=== PATIENT | male | born 1945 | race Caucasian/White ===

== ENCOUNTER 2019-03-31 15:01 | Emergency (ER) | payer MEDICARE, OTHER, SELFPAY ==
[2019-03-31 15:05] VITALS: BP 134/77; PULSE 70; RESP 18; TEMP 36.9; O2SAT 96
--- NOTE | 2019-03-31 15:10 | DI.RAD.S_ITS ---
PROCEDURE: XR CHEST 1V INDICATIONS: chest pain TECHNIQUE: One view of the chest was acquired. COMPARISON: [facility], , CHEST 1 VIEW, 11/12/2009, 13:43. FINDINGS: Surgical changes and devices: Median sternotomy wires are seen. Lungs and pleura: Increase bronchovasc the markings in bilateral hilar region are noted. Prominence and right hilar region is seen concerning for right perihilar infiltrate. No pleural effusions or pneumothorax. Mediastinum: Mediastinal contours appear normal. Heart size is enlarged. Bones and chest wall: No suspicious bony lesions. Overlying soft tissues appear unremarkable. IMPRESSION: Findings concerning for right perihilar infiltrate. Dictated by: Polo Pinto M.D. on 03/31/2019 at 15:45 Approved by: Polo Pinto M.D. on 03/31/2019 at 15:46
--- NOTE | 2019-03-31 15:10 | DI.CT.S_ITS ---
PROCEDURE: CT HEAD/BRAIN WO CON INDICATIONS: syncope yesterday w/ head injury: no memory of incident TECHNIQUE: Noncontrast 4.5 mm thick angled axial sections acquired from the foramen magnum to the vertex, with coronal and sagittal reformats. For radiation dose reduction, the following was used: automated exposure control, adjustment of mA and/or kV according to patient size. COMPARISON: None. FINDINGS: Image quality: Excellent. CSF spaces: Basal cisterns are patent. No extra-axial fluid collections. Ventricles are normal in size and shape. Brain: No midline shift. No intracranial masses or hemorrhage. Urias-white matter interface is normal. Skull and face: Calvarium and visualized facial bones are intact, without suspicious lesions. Sinuses: Visualized sinuses and mastoids are clear. IMPRESSION: Unremarkable head CT. No acute intracranial hemorrhage. Dictated by: Khris Molina M.D. on 03/31/2019 at 15:37 Approved by: Khris Molina M.D. on 03/31/2019 at 15:38
[2019-03-31 15:37] LABS: Add Manual Diff / Slide Review NO; Basophils Absolute Auto 0 /uL (0-100); Basophils Percent Auto 0.3 % (0-2); Eosinophils Absolute Auto 100 /uL (0-450); Eosinophils Percent Auto 1.9 % (2-4); Hemoglobin 11.2 g/dL (13.5-17.5); Lymphocytes Absolute Auto 1900 /uL (1100-4500); Lymphocytes Percent Auto 23.9 % (25-40); Mean Corpuscular HGB Conc 32.9 % (30-36); Mean Corpuscular Hemoglobin 30.7 PG (26-34); Mean Corpuscular Volume 93.1 fL (80-100); Monocytes Absolute Auto 800 /uL (0-900); Monocytes Percent Auto 10.1 % (3-14); Neutrophils Absolute Auto 5000 /uL (1500-7000); Neutrophils Percent Auto 63.8 % (50-75); Platelet Count 232 X10^3/uL (150-400); Red Blood Cell Count 3.65 X10^6/uL (4.5-5.9); White Blood Cell Count 7.8 X10^3/uL (4.5-11.0)
[2019-03-31 15:39] LABS: Prothrombin Time 11.6 SECONDS (10.1-12.7)
[2019-03-31 15:41] LABS: PTT Partial Thromboplastin Tim 36 SECONDS (26.4-36.2)
[2019-03-31 15:49] LABS: Alanine Aminotransferase 19 IU/L (21-72); Albumin 3.9 g/dL (3.5-5.0); Albumin Globulin Ratio 1.6 (1.0-2.8); Alkaline Phosphatase 74 U/L (38-126); Aspartate Aminotransferase 20 IU/L (17-59); BUN Creatinine Ratio 27.9 (6-22); Bilirubin Total 0.2 mg/dL (0.2-1.3); Blood Urea Nitrogen 39 mg/dL (9-20); Calcium 9.3 mg/dL (8.4-10.2); Carbon Dioxide 28 mmol/L (22-32); Chloride 106 mmol/L (98-107); Creatine Kinase 29 U/L (55-170); Estimated Glomerular Filt Rate 49.4 mL/min (>60); Globulin 2.4 g/dL (1.7-4.1); Glucose 92 mg/dL (80-110); HEMOLYSIS < 15 (0-50); Lipase 49 U/L (23-300); Potassium 4.4 mmol/L (3.4-5.1); Sodium 141 mmol/L (137-145); Total Protein 6.3 g/dL (6.3-8.2)
[2019-03-31 16:00] LABS: Troponin I < 0.012 ng/mL (0.01-0.034)
--- NOTE | 2019-03-31 16:50 | ED.HEATRA ---
HPI - Head Injury General Chief complaint: Head Injury Stated complaint: fall last night w/ altered mental status Time Seen by Provider: 03/31/19 16:35 Source: patient Mode of arrival: ambulatory Limitations: no limitations History of Present Illness HPI Narrative: The patient is 73-year-old male who presents after syncopal episode. He states that he does of vapor THC on a regular basis however last night he had a different stranded was also combined with 2 alcoholic drinks and he takes narcotic medications on a regular basis. He said he does both stood up to look at the [place] yesterday all of a sudden he fell backwards hitting his head. states he was out anywhere from 15-30 seconds. However following that for 60-90 minutes he was confused and could not remember anything she had repetitive conversations with him. He denies any of slurring of speech focal deficits. He was encouraged by friends and his primary care provider in [place] to come to the ER for evaluation. Related Data Home Medications Medication Instructions Recorded Confirmed aspirin 81 mg PO DAILY #0 07/09/11 03/31/19 Glucose: Test Strips 1 str QDAY 03/31/19 03/31/19 atorvastatin 20 mg PO DAILY 03/31/19 03/31/19 calcium citrate-vitamin D3 1 tab PO QNOON 03/31/19 03/31/19 diclofenac sodium 75 mg PO BID 03/31/19 03/31/19 docusate sodium 100 mg PO PRN PRN 03/31/19 03/31/19 duloxetine 60 mg PO DAILY 03/31/19 03/31/19 escitalopram oxalate 10 mg PO DAILY 03/31/19 03/31/19 hydrocodone-acetaminophen [[place]] 1 tab PO TID 03/31/19 03/31/19 lisinopril 2.5 mg PO DAILY 03/31/19 03/31/19 magnesium oxide 400 mg PO BID 03/31/19 03/31/19 metoprolol succinate 25 mg PO DAILY 03/31/19 03/31/19 modafinil 200 mg PO DAILY 03/31/19 03/31/19 multivitamin 1 tab PO QNOON 03/31/19 03/31/19 omeprazole 20 mg PO DAILY 03/31/19 03/31/19 oxycodone [OxyContin] 20 mg PO TID 03/31/19 03/31/19 tamsulosin 0.4 mg PO QNOON 03/31/19 03/31/19 Previous Rx's Medication Instructions Recorded Glucose: Home Monitor 0 dev QDAY #1 07/28/17 Allergies Allergy/AdvReac Type Severity Reaction Status Date / Time diazepam [DIAZEPAM] Allergy Severe PARANOID Unverified 01/19/18 12:02 AND SUICIDAL phenobarbital [PHENOBARBITAL] Allergy Mild DIFFICULT Unverified 01/19/18 12:02 WAKING UP + Pain Agree AdvReac Unknown Uncoded 01/19/18 12:02 Review of Systems Review of Systems ROS Unobtainable: All systems reviewed & are unremarkable except as noted in HPI and below Constitutional Denies chills, Denies fever(s), Denies headache(s), Denies lethargy and Denies weakness Eyes Denies change in vision, Denies eye discharge, Denies irritation and Denies loss of vision ENT Ears, Nose, Mouth, and Throat: Denies headache(s) Cardiovascular Denies chest pain, Reports syncope, Denies rapid heart rate, Denies irregular heart rhythm, Denies radiating jaw, neck or arm pain, Denies dyspnea and Denies dyspnea on exertion Respiratory Denies cough, Denies dyspnea, Denies dyspnea on exertion and Denies wheezing Gastrointestinal Gastrointestinal: Denies abdominal pain, Denies change in bowel habits, Denies diarrhea, Denies nausea and Denies vomiting Genitourinary Denies hematuria, Denies flank pain, Denies urinary incontinence and Denies urinary urgency Musculoskeletal Denies back pain, Denies muscle weakness, Denies numbness and Denies tingling Integumentary/Breasts Denies pruritus, Denies erythema, Denies rash and Denies wounds Neurologic Denies confusion, Reports syncope, Denies headache(s), Denies loss of vision, Denies numbness, Denies tingling and Denies weakness Psychiatric Denies anxiety, Denies confusion, Denies depression, Denies homicidal ideation and Denies suicidal ideation Allergic/Immunologic Denies wheezing [facility] Medical History Coronary artery disease (Acute) Surgical History Status post colectomy 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 HEENT: Head atraumatic,EOMI, pupils reactive, face symmetric, moist mucous membranes CARDIOVASCULAR: Regular rate and rhythm without murmurs, rubs or gallops. RESPIRATORY: Breath sounds equal bilaterally, no wheezes rales or rhonchi. ABDOMEN: Soft, nontender. Normoactive bowel sounds all 4 quadrants. No guarding or rebound. EXTREMITIES: Normal range of motion, no clubbing or edema. Neurovascularly intact NEUROLOGICAL: Alert and oriented x4.Normal gait and speech. Cranial nerves II through XII grossly intact. Good [id number], good [id number], strength equal bilaterally, no dysarthria or aphasia, sensation in tact to soft touch bilaterally, no visual changes, no facial droop SKIN: Warm, dry, no laceration, no petechiae, no rashes or lesions. Scores NIH Stroke Scale Level of Conciousness: Alert, keenly responsive Ask month/age: Answers both questions correctly. Open/close eyes, close hand: Performs both tasks correctly Best gaze horizontal: Normal Visual dudley: No visual loss Facial palsy: Normal symetrical movement Left arm drift: No drift for full 10 sec Right arm drift: No drift for full 10 sec Left leg drift: No drift for full 10 sec Right leg drift: No drift for full 10 sec Limb ataxia: Absent Sensory on face/arms/legs: Normal, no sensory loss Best language: No aphasia, normal Dysarthria: Normal Extinction or inattention: No abnormality Total NIH Stroke scale score: 0 Course Orders Ordered: ED Orders 03/31/19 15:10 CT head/brain wo con Stat XR chest 1V Stat EKG-12 Lead Stat 03/31/19 15:22 Complete Blood Count AUTO DIFF Stat Comprehensive Metabolic Panel Stat Lipase Stat Partial Thromboplastin Time Stat Prothrombin Time INR Stat Troponin & CK Cardiac Panel Stat Vital Signs - 8 hr 03/31/19 15:05 Temperature 98.4 F Pulse Rate 70 Respiratory Rate 18 Blood Pressure 134/77 Pulse Oximetry 96 MDM - Head Injury Lab Data Attestation: I reviewed the patient's lab results. Result diagrams: 03/31/19 15:22 03/31/19 15:22 Lab Results 03/31/19 03/31/19 03/31/19 Range/Units 15:22 15:22 15:22 WBC 7.8 (4.5-11.0) X10^3/uL RBC 3.65 L (4.5-5.9) X10^6/uL Hgb 11.2 L (13.5-17.5) g/dL Hct 34.0 L (41-53) % MCV 93.1 (80-100) fL MCH 30.7 (26-34) PG MCHC 32.9 (30-36) % RDW 13.0 (11.6-14.8) % Plt Count 232 (150-400) X10^3/uL Neut % (Auto) 63.8 (50-75) % Lymph % (Auto) 23.9 L (25-40) % [place] % (Auto) 10.1 (3-14) % Eos % (Auto) 1.9 L (2-4) % Baso % (Auto) 0.3 (0-2) % Neut # (Auto) 5000 (4425-9424) /uL Lymph # (Auto) 1900 (0973-5542) /uL [place] # (Auto) 800 (0-900) /uL Eos # (Auto) 100 (0-450) /uL Baso # (Auto) 0 (0-100) /uL PT 11.6 (10.1-12.7) SECONDS INR 1.0 (0.9-1.3) APTT 36 (26.4-36.2) SECONDS Sodium 141 (137-145) mmol/L Potassium 4.4 (3.4-5.1) mmol/L Chloride 106 (98-107) mmol/L Carbon Dioxide 28 (22-32) mmol/L BUN 39 H (9-20) mg/dL Creatinine 1.40 H (0.66-1.25) mg/dL Estimated GFR 49.4 L (>60) mL/min BUN/Creatinine Ratio 27.9 H (6-22) Glucose 92 (80-110) mg/dL Calcium 9.3 (8.4-10.2) mg/dL Total Bilirubin 0.2 (0.2-1.3) mg/dL AST 20 (17-59) IU/L ALT 19 L (21-72) IU/L Alkaline Phosphatase 74 (38-126) U/L Total Creatine Kinase 29 L (55-170) U/L CK-MB (CK-2) TNP CK-MB (CK-2) Rel Index TNP Troponin I < 0.012 (0.01-0.034) ng/mL Total Protein 6.3 (6.3-8.2) g/dL Albumin 3.9 (3.5-5.0) g/dL Globulin 2.4 (1.7-4.1) g/dL Albumin/Globulin Ratio 1.6 (1.0-2.8) Lipase 49 (23-300) U/L Imaging Data CT scan - head: Radiologist's impression: PROCEDURE: CT HEAD/BRAIN WO CON INDICATIONS: syncope yesterday w/ head injury: no memory of incident TECHNIQUE: Noncontrast 4.5 mm thick angled axial sections acquired from the foramen magnum to the vertex, with coronal and sagittal reformats. For radiation dose reduction, the following was used: automated exposure control, adjustment of mA and/or kV according to patient size. COMPARISON: None. FINDINGS: Image quality: Excellent. CSF spaces: Basal cisterns are patent. No extra-axial fluid collections. Ventricles are normal in size and shape. Brain: No midline shift. No intracranial masses or hemorrhage. Urias-white matter interface is normal. Skull and face: Calvarium and visualized facial bones are intact, without suspicious lesions. Sinuses: Visualized sinuses and mastoids are clear. IMPRESSION: Unremarkable head CT. No acute intracranial hemorrhage. Dictated by: Khris Molina M.D. on 03/31/2019 at 15:37 Chest x-ray: Radiologist's impression: PROCEDURE: XR CHEST 1V INDICATIONS: chest pain TECHNIQUE: One view of the chest was acquired. COMPARISON: [facility], CHEST 1 VIEW, 11/12/2009, 13:43. FINDINGS: Surgical changes and devices: Median sternotomy wires are seen. Lungs and pleura: Increase bronchovasc the markings in bilateral hilar region are noted. Prominence and right hilar region is seen concerning for right perihilar infiltrate. No pleural effusions or pneumothorax. Mediastinum: Mediastinal contours appear normal. Heart size is enlarged. Bones and chest wall: No suspicious bony lesions. Overlying soft tissues appear unremarkable. IMPRESSION: Findings concerning for right perihilar infiltrate. Dictated by: Polo Pinto M.D. on 03/31/2019 at 15:45 ECG Data Attestation: I personally reviewed and interpreted this ECG as follows: Prior ECG tracings: available for review Interpretation: He sinus rhythm rate 61 p.r. interval [address] changes no T-wave inversions similar to previous EKG MDM Narrative Medical decision making narrative: Patient has no sign or symptom of injury. He has been doing well. I think syncopal episode last night is combination multiple doctors including polysubstance possible new strain of THC. However I did discuss both with patient and need for Holter monitor and possible further cardiac workup. Discharge Plan Departure Patient Disposition: Home Clinical Impression: Atypical syncope Discharge Date/Time: 03/31/19 17:04 Interventions: ED Discharge Assessment Last Done: 03/31/19 17:02 Instructions: Fainting Activity Restrictions/Additional Instructions: *You have been diagnosed with syncope *What to do: At this time you likely passed out due to combination of substances. However strongly recommend that you have a Holter monitor. This can be set up with your PCP *Continue to take medications as directed *Follow up with your primary care provider in 2-3 days may call [phone] for a PCP locally *Return to ER if you should have recurrent episode of passing out, slurring of speech, weakness numbness or tingling or any new, worsening or concerning symptoms Prescriptions: No Action aspirin 81 mg Tablet,Delayed Release (Dr/Ec) 81 mg PO DAILY Qty: 0 RF: 0 Glucose: Home Monitor QDAY Qty: 1 RF: 0 multivitamin Tablet 1 tab PO QNOON RF: 0 atorvastatin 40 mg Tablet 20 mg PO DAILY RF: 0 modafinil 200 mg Tablet 200 mg PO DAILY RF: 0 tamsulosin 0.4 mg Capsule 0.4 mg PO QNOON RF: 0 docusate sodium 100 mg Capsule 100 mg PO PRN PRN (Reason: Constipation) RF: 0 omeprazole 20 mg Capsule,Delayed Release(Dr/Ec) 20 mg PO DAILY RF: 0 diclofenac sodium 75 mg Tablet,Delayed Release (Dr/Ec) 75 mg PO BID RF: 0 metoprolol succinate 25 mg Tablet Extended Release 24 Hr 25 mg PO DAILY RF: 0 lisinopril 2.5 mg Tablet 2.5 mg PO DAILY RF: 0 escitalopram oxalate 10 mg Tablet 10 mg PO DAILY RF: 0 duloxetine 60 mg Capsule,Delayed Release(Dr/Ec) 60 mg PO DAILY RF: 0 oxycodone [OxyContin] 20 mg Tablet,Oral Only,Ext.Rel.12 Hr 20 mg PO TID RF: 0 magnesium oxide 400 mg magnesium Tablet 400 mg PO BID RF: 0 calcium citrate-vitamin D3 1 tab PO QNOON RF: 0 hydrocodone-acetaminophen [[place]] 5 MG/325 MG tablet 1 tab PO TID RF: 0 Glucose: Test Strips 1 str QDAY RF: 0 Referrals: [facility] [Outside] Nic Miles MD [Physician] -
--- NOTE | 2019-03-31 16:54 | ED_ITS ---
HPI - Head Injury General Chief complaint: Head Injury Stated complaint: fall last night w/ altered mental status Time Seen by Provider: 03/31/19 16:35 Source: patient Mode of arrival: ambulatory Limitations: no limitations History of Present Illness HPI Narrative: The patient is 73-year-old male who presents after syncopal episode. He states that he does of vapor THC on a regular basis however last night he had a different stranded was also combined with 2 alcoholic drinks and he takes narcotic medications on a regular basis. He said he does both stood up to look at the [place] yesterday all of a sudden he fell backwards hitting his head. states he was out anywhere from 15-30 seconds. However following that for 60-90 minutes he was confused and could not remember anything she had repetitive conversations with him. He denies any of slurring of speech focal deficits. He was encouraged by friends and his primary care provider in [place] to come to the ER for evaluation. Related Data Home Medications Medication Instructions Recorded Confirmed aspirin 81 mg PO DAILY #0 07/09/11 03/31/19 Glucose: Test Strips 1 str QDAY 03/31/19 03/31/19 atorvastatin 20 mg PO DAILY 03/31/19 03/31/19 calcium citrate-vitamin D3 1 tab PO QNOON 03/31/19 03/31/19 diclofenac sodium 75 mg PO BID 03/31/19 03/31/19 docusate sodium 100 mg PO PRN PRN 03/31/19 03/31/19 duloxetine 60 mg PO DAILY 03/31/19 03/31/19 escitalopram oxalate 10 mg PO DAILY 03/31/19 03/31/19 hydrocodone-acetaminophen [Diamond] 1 tab PO TID 03/31/19 03/31/19 lisinopril 2.5 mg PO DAILY 03/31/19 03/31/19 magnesium oxide 400 mg PO BID 03/31/19 03/31/19 metoprolol succinate 25 mg PO DAILY 03/31/19 03/31/19 modafinil 200 mg PO DAILY 03/31/19 03/31/19 multivitamin 1 tab PO QNOON 03/31/19 03/31/19 omeprazole 20 mg PO DAILY 03/31/19 03/31/19 oxycodone [OxyContin] 20 mg PO TID 03/31/19 03/31/19 tamsulosin 0.4 mg PO QNOON 03/31/19 03/31/19 Previous Rx's Medication Instructions Recorded Glucose: Home Monitor 0 dev QDAY #1 07/28/17 Allergies Allergy/AdvReac Type Severity Reaction Status Date / Time diazepam [DIAZEPAM] Allergy Severe PARANOID Unverified 01/19/18 12:02 AND SUICIDAL phenobarbital [PHENOBARBITAL] Allergy Mild DIFFICULT Unverified 01/19/18 12:02 WAKING UP + Pain Agree AdvReac Unknown Uncoded 01/19/18 12:02 Review of Systems Review of Systems ROS Unobtainable: All systems reviewed & are unremarkable except as noted in HPI and below Constitutional Denies chills, Denies fever(s), Denies headache(s), Denies lethargy and Denies weakness Eyes Denies change in vision, Denies eye discharge, Denies irritation and Denies loss of vision ENT Ears, Nose, Mouth, and Throat: Denies headache(s) Cardiovascular Denies chest pain, Reports syncope, Denies rapid heart rate, Denies irregular heart rhythm, Denies radiating jaw, neck or arm pain, Denies dyspnea and Denies dyspnea on exertion Respiratory Denies cough, Denies dyspnea, Denies dyspnea on exertion and Denies wheezing Gastrointestinal Gastrointestinal: Denies abdominal pain, Denies change in bowel habits, Denies diarrhea, Denies nausea and Denies vomiting Genitourinary Denies hematuria, Denies flank pain, Denies urinary incontinence and Denies urinary urgency Musculoskeletal Denies back pain, Denies muscle weakness, Denies numbness and Denies tingling Integumentary/Breasts Denies pruritus, Denies erythema, Denies rash and Denies wounds Neurologic Denies confusion, Reports syncope, Denies headache(s), Denies loss of vision, Denies numbness, Denies tingling and Denies weakness Psychiatric Denies anxiety, Denies confusion, Denies depression, Denies homicidal ideation and Denies suicidal ideation Allergic/Immunologic Denies wheezing [facility] Medical History Coronary artery disease (Acute) Surgical History Status post colectomy 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 HEENT: Head atraumatic,EOMI, pupils reactive, face symmetric, moist mucous membranes CARDIOVASCULAR: Regular rate and rhythm without murmurs, rubs or gallops. RESPIRATORY: Breath sounds equal bilaterally, no wheezes rales or rhonchi. ABDOMEN: Soft, nontender. Normoactive bowel sounds all 4 quadrants. No guarding or rebound. EXTREMITIES: Normal range of motion, no clubbing or edema. Neurovascularly intact NEUROLOGICAL: Alert and oriented x4.Normal gait and speech. Cranial nerves II through XII grossly intact. Good cehega-[id number]-[id number], good mnqs-vw-ppil, strength equal bilaterally, no dysarthria or aphasia, sensation in tact to soft touch bilaterally, no visual changes, no facial droop SKIN: Warm, dry, no laceration, no petechiae, no rashes or lesions. Scores NIH Stroke Scale Level of Conciousness: Alert, keenly responsive Ask month/age: Answers both questions correctly. Open/close eyes, close hand: Performs both tasks correctly Best gaze horizontal: Normal Visual dudley: No visual loss Facial palsy: Normal symetrical movement Left arm drift: No drift for full 10 sec Right arm drift: No drift for full 10 sec Left leg drift: No drift for full 10 sec Right leg drift: No drift for full 10 sec Limb ataxia: Absent Sensory on face/arms/legs: Normal, no sensory loss Best language: No aphasia, normal Dysarthria: Normal Extinction or inattention: No abnormality Total NIH Stroke scale score: 0 Course Orders Ordered: ED Orders 03/31/19 15:10 CT head/brain wo con Stat XR chest 1V Stat EKG-12 Lead Stat 03/31/19 15:22 Complete Blood Count AUTO DIFF Stat Comprehensive Metabolic Panel Stat Lipase Stat Partial Thromboplastin Time Stat Prothrombin Time INR Stat Troponin & CK Cardiac Panel Stat Vital Signs - 8 hr 03/31/19 15:05 Temperature 98.4 F Pulse Rate 70 Respiratory Rate 18 Blood Pressure 134/77 Pulse Oximetry 96 MDM - Head Injury Lab Data Attestation: I reviewed the patient's lab results. Result diagrams: 03/31/19 15:22 03/31/19 15:22 Lab Results 03/31/19 03/31/19 03/31/19 Range/Units 15:22 15:22 15:22 WBC 7.8 (4.5-11.0) X10^3/uL RBC 3.65 L (4.5-5.9) X10^6/uL Hgb 11.2 L (13.5-17.5) g/dL Hct 34.0 L (41-53) % MCV 93.1 (80-100) fL MCH 30.7 (26-34) PG MCHC 32.9 (30-36) % RDW 13.0 (11.6-14.8) % Plt Count 232 (150-400) X10^3/uL Neut % (Auto) 63.8 (50-75) % Lymph % (Auto) 23.9 L (25-40) % Charlotte % (Auto) 10.1 (3-14) % Eos % (Auto) 1.9 L (2-4) % Baso % (Auto) 0.3 (0-2) % Neut # (Auto) 5000 (1409-3284) /uL Lymph # (Auto) 1900 (5542-7803) /uL Charlotte # (Auto) 800 (0-900) /uL Eos # (Auto) 100 (0-450) /uL Baso # (Auto) 0 (0-100) /uL PT 11.6 (10.1-12.7) SECONDS INR 1.0 (0.9-1.3) APTT 36 (26.4-36.2) SECONDS Sodium 141 (137-145) mmol/L Potassium 4.4 (3.4-5.1) mmol/L Chloride 106 (98-107) mmol/L Carbon Dioxide 28 (22-32) mmol/L BUN 39 H (9-20) mg/dL Creatinine 1.40 H (0.66-1.25) mg/dL Estimated GFR 49.4 L (>60) mL/min BUN/Creatinine Ratio 27.9 H (6-22) Glucose 92 (80-110) mg/dL Calcium 9.3 (8.4-10.2) mg/dL Total Bilirubin 0.2 (0.2-1.3) mg/dL AST 20 (17-59) IU/L ALT 19 L (21-72) IU/L Alkaline Phosphatase 74 (38-126) U/L Total Creatine Kinase 29 L (55-170) U/L CK-MB (CK-2) TNP CK-MB (CK-2) Rel Index TNP Troponin I < 0.012 (0.01-0.034) ng/mL Total Protein 6.3 (6.3-8.2) g/dL Albumin 3.9 (3.5-5.0) g/dL Globulin 2.4 (1.7-4.1) g/dL Albumin/Globulin Ratio 1.6 (1.0-2.8) Lipase 49 (23-300) U/L Imaging Data CT scan - head: Radiologist's impression: PROCEDURE: CT HEAD/BRAIN WO CON INDICATIONS: syncope yesterday w/ head injury: no memory of incident TECHNIQUE: Noncontrast 4.5 mm thick angled axial sections acquired from the foramen magnum to the vertex, with coronal and sagittal reformats. For radiation dose reduction, the following was used: automated exposure control, adjustment of mA and/or kV according to patient size. COMPARISON: None. FINDINGS: Image quality: Excellent. CSF spaces: Basal cisterns are patent. No extra-axial fluid collections. Ventricles are normal in size and shape. Brain: No midline shift. No intracranial masses or hemorrhage. Urias-white matter interface is normal. Skull and face: Calvarium and visualized facial bones are intact, without suspicious lesions. Sinuses: Visualized sinuses and mastoids are clear. IMPRESSION: Unremarkable head CT. No acute intracranial hemorrhage. Dictated by: Khris Molina M.D. on 03/31/2019 at 15:37 Chest x-ray: Radiologist's impression: PROCEDURE: XR CHEST 1V INDICATIONS: chest pain TECHNIQUE: One view of the chest was acquired. COMPARISON: [facility], CHEST 1 VIEW, 11/12/2009, 13:43. FINDINGS: Surgical changes and devices: Median sternotomy wires are seen. Lungs and pleura: Increase bronchovasc the markings in bilateral hilar region are noted. Prominence and right hilar region is seen concerning for right perihilar infiltrate. No pleural effusions or pneumothorax. Mediastinum: Mediastinal contours appear normal. Heart size is enlarged. Bones and chest wall: No suspicious bony lesions. Overlying soft tissues appear unremarkable. IMPRESSION: Findings concerning for right perihilar infiltrate. Dictated by: Polo Pinto M.D. on 03/31/2019 at 15:45 ECG Data Attestation: I personally reviewed and interpreted this ECG as follows: Prior ECG tracings: available for review Interpretation: He sinus rhythm rate 61 p.r. interval [address] changes no T- wave inversions similar to previous EKG MDM Narrative Medical decision making narrative: Patient has no sign or symptom of injury. He has been doing well. I think syncopal episode last night is combination multip le doctors including polysubstance possible new strain of THC. However I did discuss both with patient and need for Holter monitor and possible further cardiac workup. Discharge Plan Departure Patient Disposition: Home Clinical Impression: Atypical syncope Discharge Date/Time: 03/31/19 17:04 Interventions: ED Discharge Assessment Last Done: 03/31/19 17:02 Instructions: Fainting Activity Restrictions/Additional Instructions: *You have been diagnosed with syncope *What to do: At this time you likely passed out due to combination of substances. However strongly recommend that you have a Holter monitor. This can be set up with your PCP *Continue to take medications as directed *Follow up with your primary care provider in 2-3 days may call [phone] for a PCP locally *Return to ER if you should have recurrent episode of passing out, slurring of speech, weakness numbness or tingling or any new, worsening or concerning symptoms Prescriptions: No Action aspirin 81 mg Tablet,Delayed Release (Dr/Ec) 81 mg PO DAILY Qty: 0 RF: 0 Glucose: Home Monitor QDAY Qty: 1 RF: 0 multivitamin Tablet 1 tab PO QNOON RF: 0 atorvastatin 40 mg Tablet 20 mg PO DAILY RF: 0 modafinil 200 mg Tablet 200 mg PO DAILY RF: 0 tamsulosin 0.4 mg Capsule 0.4 mg PO QNOON RF: 0 docusate sodium 100 mg Capsule 100 mg PO PRN PRN (Reason: Constipation) RF: 0 omeprazole 20 mg Capsule,Delayed Release(Dr/Ec) 20 mg PO DAILY RF: 0 diclofenac sodium 75 mg Tablet,Delayed Release (Dr/Ec) 75 mg PO BID RF: 0 metoprolol succinate 25 mg Tablet Extended Release 24 Hr 25 mg PO DAILY RF: 0 lisinopril 2.5 mg Tablet 2.5 mg PO DAILY RF: 0 escitalopram oxalate 10 mg Tablet 10 mg PO DAILY RF: 0 duloxetine 60 mg Capsule,Delayed Release(Dr/Ec) 60 mg PO DAILY RF: 0 oxycodone [OxyContin] 20 mg Tablet,Oral Only,Ext.Rel.12 Hr 20 mg PO TID RF: 0 magnesium oxide 400 mg magnesium Tablet 400 mg PO BID RF: 0 calcium citrate-vitamin D3 1 tab PO QNOON RF: 0 hydrocodone-acetaminophen [Diamond] 5 MG/325 MG tablet 1 tab PO TID RF: 0 Glucose: Test Strips 1 str QDAY RF: 0 Referrals: [facility] [Outside] Nic Miles MD [Physician] -
[2019-03-31 17:02] VITALS: BP 112/55; PULSE 56; RESP 16; O2SAT 97
== END 2019-03-31 17:04 | disposition home or self-care (01) ==
PROVIDERS: Emergency Provider Emergency Medicine
DX: R55 Syncope and collapse (principal); R41.82 Altered mental status, unspecified; S09.90XA Unspecified injury of head, initial encounter; W19.XXXA Unspecified fall, initial encounter
CPT/HCPCS: 36591; 70450; 71045; 80053; 82550; 83690; 84484; 85025; 85610; 85730; 93005; 99283; 99285

== ENCOUNTER → 2020-04-18 15:10 | Outpatient (CLI) | payer MEDICARE, OTHER, SELFPAY ==
[2020-04-18 16:31] LABS: UR Morphine/Opiate cutoff 300 Positive (Negative); Ur Creatinine Normal (Normal); Ur Specific Gravity Normal (Normal); Urine Amphetamines Negative (Negative); Urine Barbiturates Negative (Negative); Urine Benzodiazepines Negative (Negative); Urine Cocaine Negative (Negative); Urine MDMA Negative (Negative); Urine Methadone Negative (Negative); Urine Methamphetamines Negative (Negative); Urine Oxycodone Positive (Negative); Urine Phencyclidine Negative (Negative); Urine Tetrahydrocannabinol Positive (Negative); Urine Tricyclic Antidepressant Negative (Negative); Urine pH Normal (Normal)
== END ==
PROVIDERS: PCP Family Medicine; Referring Provider Family Medicine; Visit Provider Family Medicine
DX: Z02.89 Encounter for other administrative examinations (principal)
CPT/HCPCS: 80305

== ENCOUNTER → 2020-04-26 10:34 | Outpatient (CLI) | payer MEDICARE, OTHER, SELFPAY ==
[2020-04-26 11:52] LABS: Add Manual Diff / Slide Review NO; Basophils Absolute Auto 0 /uL (0-100); Basophils Percent Auto 0.4 % (0-2); Eosinophils Absolute Auto 100 /uL (0-450); Eosinophils Percent Auto 1.1 % (2-4); Hematocrit 37.8 % (41-53); Hemoglobin 12.5 g/dL (13.5-17.5); Lymphocytes Absolute Auto 1000 /uL (1100-4500); Lymphocytes Percent Auto 11.9 % (25-40); Mean Corpuscular Hemoglobin 30.6 PG (26-34); Mean Corpuscular Volume 92.8 fL (80-100); Monocytes Absolute Auto 700 /uL (0-900); Monocytes Percent Auto 8.6 % (3-14); Neutrophils Absolute Auto 6300 /uL (1500-7000); Platelet Count 213 X10^3/uL (150-400); Red Blood Cell Count 4.08 X10^6/uL (4.5-5.9)
[2020-04-26 12:30] LABS: Erythrocyte Sedimentation Rate 7 MM/HR (0-15)
[2020-04-26 12:37] LABS: C-Reactive Protein Quant < 0.5 mg/dL (<1.0)
== END ==
PROVIDERS: PCP Family Medicine; Referring Provider Orthopaedic Surgery Adult Reconstructive Orthopaedic Surgery; Visit Provider Orthopaedic Surgery Adult Reconstructive Orthopaedic Surgery
DX: M16.12 Unilateral primary osteoarthritis, left hip (principal); M25.552 Pain in left hip; M70.62 Trochanteric bursitis, left hip
CPT/HCPCS: 36415; 85025; 85651; 86140

== ENCOUNTER → 2020-04-30 07:08 | Outpatient (CLI) | payer MEDICARE, OTHER, SELFPAY ==
--- NOTE | 2020-04-30 | DI.MRI.S_ITS ---
PROCEDURE: MR HIP LT WO CON INDICATIONS: Unilateral primary osteoarthritis, left hip TECHNIQUE: Noncontrast coronal T1 spin echo and STIR through the bony pelvis. Coronal and axial T2 fast spin echo with fat saturation, sagittal T1 spin echo, and oblique axial T2 fast spin echo with fat saturation through the hip. COMPARISON: [facility], CR, XR PELVIS WITH LATERAL HIP LEFT, 04/16/2020, 10:15. FINDINGS: Image quality: There is heterogeneous fat saturation and motion artifact limiting evaluation. Bones and joints: Bone marrow of the pelvic ring and proximal femurs demonstrates normal overall signal. No suspicious intraosseous lesions or fractures. No avascular necrosis of the femoral heads. There is prominent collar osteophytosis. Subchondral edema and cystic changes are demonstrated along the lateral acetabulum. The visualized lower lumbar spine appears normally aligned. Tendons and ligaments: The gluteus medius and minimus tendons appear grossly intact, with evaluation limited due to motion artifact and inhomogeneous fat saturation. The adjacent proximal iliotibial band also appears intact. The iliopsoas tendon appears intact, without adjacent bursal fluid collections or evidence for impingement syndrome. The origin of the hamstring tendon is intact at the ischial tuberosity, as well as the associated sacrotuberous ligament. The straight and reflected heads of the rectus femoris muscle origin appear intact, as well as the conjoint tendon. The ligamentum teres appears intact where visualized. Labrum and cartilage: There is degenerative tearing of the labrum primarily involving the superior and anterosuperior labrum, with evaluation limited in the absence of intra-articular contrast. There is moderate cartilage thinning superiorly with chondral fissuring laterally. The alpha angle of the femur is increased at greater than 55 degrees. Soft tissues: Visualized muscles demonstrate normal bulk, with evaluation limited due to inhomogeneous fat saturation laterally. Quadratus femoris muscle demonstrates no internal edema to suggest ischiofemoral impingement. The proximal sciatic neurovascular bundle appears normal adjacent to the hamstring tendons. No free pelvic fluid. There is bladder wall thickening and trabeculation compatible with sequelae of chronic bladder outlet obstruction. The prostate demonstrates heterogeneous enlargement. Genitourinary structures and bowel loops appear normal where visualized. IMPRESSION: 1. Moderate osteoarthritic changes of the left hip with collar osteophytosis, superior cartilage thinning with chondral fissuring, and subchondral edema and cystic changes laterally in the superior acetabulum. 2. Degenerative tearing of the labrum. Dictated by: Elgin Valdivia M.D. on 04/30/2020 at 12:19 Approved by: Elgin Valdivia M.D. on 04/30/2020 at 13:40
== END ==
PROVIDERS: PCP Family Medicine; Referring Provider Orthopaedic Surgery Adult Reconstructive Orthopaedic Surgery; Visit Provider Orthopaedic Surgery Adult Reconstructive Orthopaedic Surgery
DX: M16.12 Unilateral primary osteoarthritis, left hip (principal); S73.192A Other sprain of left hip, initial encounter
CPT/HCPCS: 73721

== ENCOUNTER → 2020-09-13 06:56 | Outpatient (CLI) | payer MEDICARE, OTHER, SELFPAY ==
[2020-09-13 08:25] LABS: Add Manual Diff / Slide Review NO; Basophils Absolute Auto 0 /uL (0-100); Basophils Percent Auto 0.4 % (0-2); Eosinophils Absolute Auto 200 /uL (0-450); Eosinophils Percent Auto 3.9 % (2-4); Hematocrit 37.6 % (41-53); Hemoglobin 12.5 g/dL (13.5-17.5); Lymphocytes Absolute Auto 1300 /uL (1100-4500); Lymphocytes Percent Auto 21.7 % (25-40); Mean Corpuscular HGB Conc 33.2 % (30-36); Mean Corpuscular Hemoglobin 30.9 PG (26-34); Mean Corpuscular Volume 93.3 fL (80-100); Monocytes Absolute Auto 600 /uL (0-900); Monocytes Percent Auto 10.5 % (3-14); Neutrophils Absolute Auto 3900 /uL (1500-7000); Neutrophils Percent Auto 63.5 % (50-75); Platelet Count 256 X10^3/uL (150-400); Red Blood Cell Count 4.03 X10^6/uL (4.5-5.9); Red Cell Distribution Width 13.3 % (11.6-14.8); White Blood Cell Count 6.1 X10^3/uL (4.5-11.0)
[2020-09-13 09:04] LABS: Alanine Aminotransferase 16 IU/L (<50); Albumin Globulin Ratio 1.4 (1.0-2.8); Alkaline Phosphatase 84 U/L (38-126); Aspartate Aminotransferase 23 IU/L (17-59); BUN Creatinine Ratio 26.5 (6-22); Bilirubin Total 0.4 mg/dL (0.2-1.3); Blood Urea Nitrogen 41 mg/dL (9-20); Calcium 9.7 mg/dL (8.4-10.2); Carbon Dioxide 30 mmol/L (22-32); Chloride 104 mmol/L (98-107); Cholesterol 121 mg/dL (140-199); Estimated Glomerular Filt Rate 43.7 mL/min (>60); Globulin 2.8 g/dL (1.7-4.1); Glucose 95 mg/dL (80-110); HDL Cholesterol 51 mg/dL (40-60); HEMOLYSIS < 15 (0-50); LDL Cholesterol Calculated 49 mg/dL (<100); Potassium 4.8 mmol/L (3.4-5.1); Sodium 138 mmol/L (137-145); Total Protein 6.8 g/dL (6.3-8.2); Triglycerides 105 mg/dL (35-150)
== END ==
PROVIDERS: PCP Internal Medicine; Referring Provider Internal Medicine; Visit Provider Internal Medicine
DX: I10 Essential (primary) hypertension (principal); N40.1 Benign prostatic hyperplasia with lower urinary tract symptoms; E78.2 Mixed hyperlipidemia
CPT/HCPCS: 36415; 80053; 80061; 85025

== ENCOUNTER → 2020-09-26 12:50 | Outpatient (CLI) | payer MEDICARE, OTHER, SELFPAY ==
[2020-09-26 13:54] LABS: HEMOLYSIS < 15 (0-50); Iron 109 ug/dL (49-181)
[2020-09-26 14:04] LABS: Percent Iron Saturation 34 % (20-50); Total Iron Binding Capacity 325 ug/dL (261-462); Transferrin 259 mg/dL (206-381)
[2020-09-26 14:32] LABS: Ferritin 36 ng/mL (18-464)
== END ==
PROVIDERS: PCP Internal Medicine; Referring Provider Internal Medicine; Visit Provider Internal Medicine
DX: D64.9 Anemia, unspecified (principal)
CPT/HCPCS: 36415; 82728; 83540; 83550

== ENCOUNTER → 2022-04-28 16:51 | Outpatient (CLI) | payer MEDICARE, OTHER, SELFPAY | PROVIDERS: PCP Internal Medicine; Referring Provider Urology; Visit Provider Urology | DX: R97.20 Elevated prostate specific antigen [PSA] (principal) | CPT/HCPCS: 36415; 84153 ==

== ENCOUNTER → 2022-05-12 16:54 | Outpatient (CLI) | payer MEDICARE, OTHER, SELFPAY ==
--- NOTE | 2022-05-12 16:56 | DI.MRI.S_ITS ---
PROCEDURE: MR PELIS WO/W CON INDICATIONS: Lower urinary tract symptoms TECHNIQUE: Coronal HASTE, axial T1 FSE with fat saturation, 3-plane nonbreath-hold T2 FSE. After the administration of contrast, dynamic axial, delayed axial and coronal VIBE or 2-D FLASH with fat saturation through the pelvis. Optional diffusion weighted imaging and ADC may be performed. COMPARISON: None. FINDINGS: Image quality: Diffusion weighted and dynamic contrast enhanced images are diagnostic. Prostate: 4.8 x 3.6 x 4.2 centimeters, for a volume of 38 cc. Heterogeneous encapsulated lesions of the transitional zone is most compatible with BPH. Heterogeneous hypointensity of the peripheral zone and striated pattern can be seen as a sequelae of prostatitis and can obscure small cancers. Pi-RADS 2. Lesion in the left apical peripheral zone anterior region (4/17). DWI score 3. T2 score 3. DCE -. Pi-RADS 3. Genitourinary system: Bladder is mildly thick-walled and under distended. Trabeculated appearance. Bowel and peritoneum: No bowel obstruction. Appearance of rectal wall thickening may be secondary to under distention. Nodes and vessels: No pelvic or inguinal adenopathy by size criteria. Iliac vessels are normal in caliber. Soft tissues: No inguinal hernias. Bones: Marrow demonstrates normal overall signal, without lesions to suggest metastases. IMPRESSION: Sequela of BPH and prostatitis - PI-RADS 2. Small Pi-RADS 3 lesion in the left apical peripheral zone. No lymphadenopathy. Under distended and mildly thick-walled, trabeculated bladder, favored to represent chronic bladder outlet obstruction. Correlate with cystoscopy if needed. Dictated by: Ariel Dupont M.D. on 05/13/2022 at 9:33 Approved by: Ariel Dupont M.D. on 05/13/2022 at 9:46
[2022-05-14 06:20] LABS: PSA Free % 12.1 % (.); PSA, Total 11.6 ng/mL (0.0-4.0)
== END ==
PROVIDERS: PCP Internal Medicine; Referring Provider Urology; Visit Provider Urology
DX: R39.9 Unspecified symptoms and signs involving the genitourinary system (principal); R97.20 Elevated prostate specific antigen [PSA]; N32.89 Other specified disorders of bladder
CPT/HCPCS: 36415; 72197; 84153; 84154; A9579

== ENCOUNTER → 2022-07-30 17:19 | Outpatient (CLI) | payer MEDICARE, OTHER, SELFPAY ==
[2022-07-30 19:43] LABS: Prostate Specific Antigen 9.64 ng/mL (0.10-4.00)
[2022-08-02 09:29] LABS: PSA Free % 13.2 % (.); PSA, Total 10.2 ng/mL (0.0-4.0)
== END ==
PROVIDERS: PCP Internal Medicine; Referring Provider Urology; Visit Provider Urology
DX: R97.20 Elevated prostate specific antigen [PSA] (principal)
CPT/HCPCS: 36415; 84153; 84154

== ENCOUNTER → 2023-03-04 17:05 | Outpatient (CLI) | payer MEDICARE, OTHER, SELFPAY ==
[2023-03-06 11:21] LABS: PSA Free % 12.6 % (.); PSA, Total 9.7 ng/mL (0.0-4.0)
== END ==
PROVIDERS: PCP Internal Medicine; Referring Provider Urology; Visit Provider Urology
DX: R97.20 Elevated prostate specific antigen [PSA] (principal)
CPT/HCPCS: 36415; 84153; 84154

== ENCOUNTER → 2023-04-02 12:57 | Outpatient (CLI) | payer MEDICARE, OTHER, SELFPAY ==
[2023-04-02 13:28] LABS: Hematocrit 37.5 % (41-53); Hemoglobin 12.8 g/dL (13.5-17.5); Platelet Count 239 X10^3/uL (150-400); Red Blood Cell Count 4.12 X10^6/uL (4.5-5.9); Red Cell Distribution Width 14.2 % (11.6-14.8); White Blood Cell Count 5.9 X10^3/uL (4.5-11.0)
[2023-04-02 13:57] LABS: Alanine Aminotransferase 20 IU/L (<50); Albumin 4.2 g/dL (3.5-5.0); Albumin Globulin Ratio 1.7 (1.0-2.8); Alkaline Phosphatase 74 U/L (38-126); Aspartate Aminotransferase 24 IU/L (17-59); BUN Creatinine Ratio 15.9 (6-22); Bilirubin Total 0.2 mg/dL (0.2-1.3); Blood Urea Nitrogen 24 mg/dL (9-20); Calcium 9.6 mg/dL (8.4-10.2); Carbon Dioxide 29 mmol/L (22-32); Chloride 98 mmol/L (98-107); Cholesterol 127 mg/dL (140-199); Estimated Glomerular Filt Rate 47 mL/min (>60); Globulin 2.5 g/dL (1.7-4.1); Glucose 115 mg/dL (80-110); HDL Cholesterol 50 mg/dL (40-60); HEMOLYSIS < 15 (0-50); LDL Cholesterol Calculated 49 mg/dL (<100); Potassium 4.8 mmol/L (3.4-5.1); Sodium 134 mmol/L (137-145); Total Protein 6.7 g/dL (6.3-8.2); Triglycerides 141 mg/dL (35-150)
[2023-04-02 14:18] LABS: TSH w/ Reflex to FT4 2.88 uIU/mL (0.47-4.68)
[2023-04-02 14:59] LABS: Creatinine Urine Random 142.5 mg/dL
[2023-04-02 15:07] LABS: Microalbumin Urine Random < 0.6 mg/dL (0-1.6)
[2023-04-03 07:31] LABS: x Labcorp Estim. Avg Glu (eAG) 134 mg/dL (.); x Labcorp Hemoglobin A1c 6.3 % (4.8-5.6)
[2023-04-03 10:08] LABS: Calcium 9.8 mg/dL (8.6-10.2); Parathyroid Hormone, Intact 64 pg/mL (15-65)
== END ==
PROVIDERS: PCP Internal Medicine; Referring Provider Internal Medicine; Visit Provider Internal Medicine
DX: N18.32 Chronic kidney disease, stage 3b; E11.22 Type 2 diabetes mellitus with diabetic chronic kidney disease; E78.2 Mixed hyperlipidemia; I10 Essential (primary) hypertension; I25.10 Atherosclerotic heart disease of native coronary artery without angina pectoris
CPT/HCPCS: 36415; 80053; 80061; 82043; 82306; 82310; 82570; 83036; 83970; 84443; 85027

== ENCOUNTER → 2023-07-27 08:11 | Outpatient (CLI) | payer MEDICARE, OTHER, SELFPAY ==
[2023-07-27 10:28] LABS: BUN Creatinine Ratio 13.4 (6-22); Blood Urea Nitrogen 19 mg/dL (9-20); Calcium 9.9 mg/dL (8.4-10.2); Carbon Dioxide 29 mmol/L (22-32); Chloride 101 mmol/L (98-107); Estimated Glomerular Filt Rate 50 mL/min (>60); Glucose 114 mg/dL (80-110); HEMOLYSIS < 15 (0-50); Potassium 4.5 mmol/L (3.4-5.1); Sodium 138 mmol/L (137-145)
== END ==
PROVIDERS: PCP Internal Medicine; Referring Provider Internal Medicine; Visit Provider Internal Medicine
DX: E11.22 Type 2 diabetes mellitus with diabetic chronic kidney disease (principal); N18.32 Chronic kidney disease, stage 3b
CPT/HCPCS: 36415; 80048; 83036

== ENCOUNTER → 2024-02-24 12:13 | Outpatient (CLI) | payer MEDICARE, OTHER, SELFPAY | PROVIDERS: PCP Internal Medicine; Referring Provider Urology; Visit Provider Urology | DX: R97.20 Elevated prostate specific antigen [PSA] (principal) | CPT/HCPCS: 36415; 84153; 84154 ==

== ENCOUNTER → 2024-04-22 07:51 | Outpatient (CLI) | payer MEDICARE, OTHER, SELFPAY ==
[2024-04-22 08:46] LABS: Hemoglobin A1C% w Est Avg Glu 5.8 % (4.0-6.0)
[2024-04-22 09:01] LABS: Aspartate Aminotransferase 21 IU/L (17-59); BUN Creatinine Ratio 14.9 (6-22); Blood Urea Nitrogen 24 mg/dL (9-20); Calcium 9.7 mg/dL (8.4-10.2); Carbon Dioxide 29 mmol/L (22-32); Chloride 105 mmol/L (98-107); Cholesterol 122 mg/dL (140-199); Estimated Glomerular Filt Rate 43 mL/min (>60); Glucose 99 mg/dL (80-110); HDL Cholesterol 60 mg/dL (40-60); HEMOLYSIS < 15 (0-50); LDL Cholesterol Calculated 45 mg/dL (<100); Potassium 5.2 mmol/L (3.4-5.1); Sodium 137 mmol/L (137-145); Triglycerides 87 mg/dL (35-150)
== END ==
LOC: LAB 07:53
PROVIDERS: PCP Internal Medicine; Referring Provider Internal Medicine; Visit Provider Internal Medicine
DX: E11.22 Type 2 diabetes mellitus with diabetic chronic kidney disease (principal); N18.32 Chronic kidney disease, stage 3b; E78.2 Mixed hyperlipidemia
CPT/HCPCS: 36415; 80048; 80061; 83036; 84450

== ENCOUNTER → 2024-05-16 07:42 | Outpatient (CLI) | payer MEDICARE, OTHER, SELFPAY ==
--- NOTE | 2024-05-16 07:44 | DI.RAD.S_ITS ---
PROCEDURE: XR SHOULDER RT MIN 2V INDICATIONS: RIGHT SHOULDER PAIN TECHNIQUE: 3 views of the shoulder were acquired. COMPARISON: [facility], CR, XR CERVICAL SPINE 4V OR 5V, 05/16/2024, 7:46. [facility], CR, XR LUMBAR SPINE MIN 4V, 05/16/2024, 7:46. [facility], CR, XR SHOULDER 2+ VIEWS RIGHT, 09/17/2020, 11:18. FINDINGS: Bones: No acute fractures or dislocations. There is a right inferior glenoid screws seen, as before. No suspicious bony lesions. Visualized ribs appear intact. Nerve changes are seen, with [id number] subacromial spurring. There is at least moderate glenohumeral joint space narrowing. Post CABG changes are seen. Soft tissues: No suspicious soft tissue calcifications. The visualized lung demonstrates an unremarkable appearance. IMPRESSION: Degenerative changes are seen, with at least moderate glenohumeral joint space narrowing. Prior postoperative change is seen, with a right inferior glenoid screw, as before. Dictated by: Primitivo Wolff M.D. on 05/16/2024 at 10:42 Approved by: Primitivo Wolff M.D. on 05/16/2024 at 10:43
--- NOTE | 2024-05-16 07:44 | DI.RAD.S_ITS ---
PROCEDURE: XR LUMBAR SPINE MIN 4V INDICATIONS: BACK PAIN TECHNIQUE: 5 views of the lumbar spine were acquired, including bilateral oblique views. COMPARISON: [facility], CR, XR CERVICAL SPINE 4V OR 5V, 05/16/2024, 7:46. [facility], CR, XR SHOULDER RT MIN 2V, 05/16/2024, 7:46. FINDINGS: Bones: 5 nonrib-bearing vertebrae are present. No vertebral body compression fractures. No suspicious bony lesions. There is minimal retrolisthesis at L2-L3, with mild grade 1 anterolisthesis at L4-L5 and L5-S1. There is nsxy-pp-[id number] disc space narrowing seen at L2-L3, with mild disc space narrowing at L4-L5. Lower lumbar spine facet arthropathy is seen. There is moderate right-sided and at least moderate left-sided hip degenerative change. Soft tissues: Overlying bowel gas pattern is normal. No suspicious soft tissue calcifications. Atherosclerotic calcification is noted. Laparoscopic anchors are seen. Pelvic postoperative clips are seen. Oblique images: No pars defects. IMPRESSION: Multiple levels of lumbar spine degenerative change can be seen, including facet arthropathy. Dictated by: Primitivo Wolff M.D. on 05/16/2024 at 10:39 Approved by: Primitivo Wolff M.D. on 05/16/2024 at 10:42
--- NOTE | 2024-05-16 07:44 | DI.RAD.S_ITS ---
PROCEDURE: XR CERVICAL SPINE 4V OR 5V INDICATIONS: NECK PAIN TECHNIQUE: 5 total views of the cervical spine were acquired, including bilateral oblique views. COMPARISON: [facility], CR, XR LUMBAR SPINE MIN 4V, 05/16/2024, 7:46. [facility], CR, XR SHOULDER RT MIN 2V, 05/16/2024, 7:46. FINDINGS: Bones: No fractures or dislocations to the C7 level. Oblique images demonstrate no bony foraminal stenoses. There is at least moderate disc space narrowing seen at C5-C6. On oblique images, there is at least moderate disc space narrowing seen on the left at the C2-C3, C3-C4, and C4-C5 levels. On the right, there is at least moderate neural foraminal narrowing seen at C2-C3, C3-C4, and C4-C5. Postoperative changes are seen, with sternotomy wires and a right glenoid screw. Soft tissues: No prevertebral soft tissue swelling. IMPRESSION: Multiple levels of significant cervical spine degenerative change can be seen by plain film, with multiple levels of at least moderate bilateral neural foraminal narrowing present. Dictated by: Primitivo Wolff M.D. on 05/16/2024 at 10:34 Approved by: Primitivo Wolff M.D. on 05/16/2024 at 10:39
== END ==
PROVIDERS: PCP Internal Medicine; Referring Provider Physical Medicine & Rehabilitation; Visit Provider Physical Medicine & Rehabilitation
DX: M47.812 Spondylosis without myelopathy or radiculopathy, cervical region (principal); M48.02 Spinal stenosis, cervical region; M47.816 Spondylosis without myelopathy or radiculopathy, lumbar region; M25.511 Pain in right shoulder; M54.2 Cervicalgia; M45.9 Ankylosing spondylitis of unspecified sites in spine; M54.9 Dorsalgia, unspecified
CPT/HCPCS: 72050; 72110; 73030

== ENCOUNTER → 2024-06-30 13:09 | Outpatient (CLI) | payer MEDICARE, OTHER, SELFPAY ==
--- NOTE | 2024-06-30 13:11 | DI.MRI.S_ITS ---
PROCEDURE: MR LUMBAR SPINE WO CON INDICATIONS: spinal stenosis w/ claudication TECHNIQUE: Noncontrast sagittal T1 spin echo and T2 fast echo, sagittal STIR, and T2 fast spin echo through the lumbar spine. In cases with scoliosis, additional coronal T2 fast spin echo may be performed. COMPARISON: [facility], CR, XR LUMBAR SPINE MIN 4V, 05/16/2024, 7:46. FINDINGS: Image quality: Excellent. Alignment and Curvature: Grade 1 anterolisthesis of L4 on L5 measuring approximately 4 mm. Bone Marrow: Marrow is of normal overall signal. No acute vertebral body compression fractures. Mild Modic type 1 degenerative endplate edema at the inferior endplate of L2. Spinal Cord: Conus medullaris terminates at the L1 level. Visualized cord demonstrates normal signal and size. Paraspinous Soft Tissues: No paravertebral masses. Grade 2 fatty infiltration of the paraspinous musculature. T12-L1: Mild disc desiccation and mild facet hypertrophy resulting in mild bilateral neural foraminal narrowing without significant spinal canal stenosis. L1-L2: Disc space height is preserved. There is moderate right and mild left facet hypertrophy. Findings result in minimal narrowing of the spinal canal as well as moderate right neural foraminal narrowing without significant left neural foraminal narrowing. L2-L3: Disc desiccation with circumferential disc bulging and moderate bilateral facet hypertrophy as well as buckling of the ligamentum flavum. Findings result in [id number] narrowing of the spinal canal with crowding of the bilateral lateral recesses as well as moderate to severe bilateral neural foraminal narrowing. L3-L4: Disc desiccation with circumferential disc bulging and moderate to severe bilateral facet hypertrophy as well as buckling of the ligamentum flavum. Findings result in moderate to severe narrowing of the spinal canal with effacement of the lateral recesses and moderate bilateral neural foraminal narrowing. L4-L5: Grade 1 anterolisthesis with uncovering of the disc space and superimposed circumferential disc bulging. There is also severe bilateral facet hypertrophy and buckling of the ligamentum flavum. Findings result in severe narrowing of the spinal canal with effacement of the lateral recesses and moderate bilateral neural foraminal narrowing. L5-S1: Disc desiccation and moderate bilateral facet hypertrophy, which result in [id number] narrowing of the neural foramina without significant spinal canal stenosis. IMPRESSION: 1. At L4-5, grade 1 anterolisthesis and superimposed degenerative changes result in severe narrowing of the spinal canal with effacement of the lateral recesses and moderate bilateral neural foraminal narrowing. 2. At L3-4, degenerative changes result in moderate to severe narrowing of the spinal canal, effacement of the lateral recesses, and moderate bilateral neural foraminal narrowing. 3. At L2-3, degenerative changes result in moderate to severe bilateral neural foraminal narrowing and mild to moderate narrowing of the spinal canal. 4. Additional multilevel degenerative disc disease and facet hypertrophy as described in detail in the body of the report. Approved by: Frank Garcia M.D. on 06/30/2024 at 14:37
== END ==
LOC: MRI 13:10
PROVIDERS: PCP Internal Medicine; Referring Provider Physical Medicine & Rehabilitation; Visit Provider Physical Medicine & Rehabilitation
DX: M48.062 Spinal stenosis, lumbar region with neurogenic claudication (principal); M48.07 Spinal stenosis, lumbosacral region; M43.16 Spondylolisthesis, lumbar region; M47.816 Spondylosis without myelopathy or radiculopathy, lumbar region; M47.817 Spondylosis without myelopathy or radiculopathy, lumbosacral region
CPT/HCPCS: 72148

== ENCOUNTER → 2024-07-13 17:17 | Outpatient (CLI) | payer MEDICARE, OTHER, SELFPAY | LOC: LAB 17:18 | PROVIDERS: PCP Internal Medicine; Referring Provider Urology; Visit Provider Urology | DX: N40.1 Benign prostatic hyperplasia with lower urinary tract symptoms (principal); N13.8 Other obstructive and reflux uropathy | CPT/HCPCS: 36415; 84153; 84154 ==

== ENCOUNTER → 2024-08-17 17:05 | Outpatient (CLI) | payer MEDICARE, OTHER, SELFPAY ==
[2024-08-19 07:09] LABS: PSA, Total 10.4 ng/mL (0.0-4.0)
== END ==
PROVIDERS: PCP Internal Medicine; Referring Provider Urology; Visit Provider Urology
DX: R97.20 Elevated prostate specific antigen [PSA] (principal)
CPT/HCPCS: 36415; 84153; 84154

== ENCOUNTER → 2025-02-01 15:08 | Outpatient (CLI) | payer MEDICARE, OTHER, SELFPAY ==
[2025-02-03 07:40] LABS: PSA Free % 14.2 % (.); PSA, Total 7.7 ng/mL (0.0-4.0)
== END ==
PROVIDERS: PCP Internal Medicine; Referring Provider Urology; Visit Provider Urology
DX: R97.20 Elevated prostate specific antigen [PSA] (principal)
CPT/HCPCS: 36415; 84153; 84154

== ENCOUNTER → 2025-02-05 11:24 | Outpatient (CLI) | payer MEDICARE, OTHER, SELFPAY ==
[2025-02-05 12:32] LABS: Hemoglobin A1C% w Est Avg Glu 5.8 % (4.0-6.0)
[2025-02-05 12:34] LABS: Hematocrit 37.3 % (41-53); Hemoglobin 12.7 g/dL (13.5-17.5); Mean Corpuscular HGB Conc 33.9 % (30-36); Mean Corpuscular Hemoglobin 31.3 PG (26-34); Mean Corpuscular Volume 92.4 fL (80-100); Platelet Count 241 X10^3/uL (150-400); Red Blood Cell Count 4.04 X10^6/uL (4.5-5.9); Red Cell Distribution Width 13.2 % (11.6-14.8); White Blood Cell Count 5.6 X10^3/uL (4.5-11.0)
[2025-02-05 12:39] LABS: Aspartate Aminotransferase 31 IU/L (17-59); BUN Creatinine Ratio 15.9 (6-22); Blood Urea Nitrogen 30 mg/dL (9-20); Calcium 9.9 mg/dL (8.4-10.2); Carbon Dioxide 26 mmol/L (22-32); Chloride 100 mmol/L (98-107); Cholesterol 149 mg/dL (140-199); Estimated Glomerular Filt Rate 35 mL/min (>60); Glucose 140 mg/dL (70-99); HDL Cholesterol 62 mg/dL (40-60); HEMOLYSIS < 15 (0-50); LDL Cholesterol Calculated 67 mg/dL (<100); Potassium 4.7 mmol/L (3.4-5.1); Sodium 135 mmol/L (137-145); Triglycerides 102 mg/dL (35-150)
[2025-02-05 13:10] LABS: TSH w/ Reflex to FT4 2.12 uIU/mL (0.47-4.68)
[2025-02-05 13:27] LABS: Vitamin B12 Reflex MMA if <400 511 pg/mL (239-931)
[2025-02-05 15:02] LABS: Creatinine Urine Random 110.58 mg/dL
[2025-02-05 15:06] LABS: Microalbumin Urine Random 0.7 mg/dL (0-1.6)
== END ==
PROVIDERS: PCP Internal Medicine; Referring Provider Internal Medicine; Visit Provider Internal Medicine
DX: N18.32 Chronic kidney disease, stage 3b (principal); E11.22 Type 2 diabetes mellitus with diabetic chronic kidney disease; E78.2 Mixed hyperlipidemia; E53.8 Deficiency of other specified B group vitamins
CPT/HCPCS: 36415; 80048; 80061; 82043; 82570; 82607; 83036; 84443; 84450; 85027

== ENCOUNTER → 2025-07-25 16:34 | Outpatient (CLI) | payer MEDICARE, OTHER, SELFPAY | PROVIDERS: PCP Internal Medicine; Referring Provider Urology; Visit Provider Urology | DX: R97.20 Elevated prostate specific antigen [PSA] (principal) | CPT/HCPCS: 36415; 84153; 84154 ==

== ENCOUNTER → 2025-09-13 07:39 | Outpatient (CLI) | payer MEDICARE, OTHER, SELFPAY ==
[2025-09-13 08:16] LABS: Appearance Urine UA CLEAR; Bilirubin Urine UA NEGATIVE (NEGATIVE); Color Urine UA YELLOW; Glucose Urine UA 2+ g/dL (Negative); Ketones Urine UA NEGATIVE (NEGATIVE); Leukocyte Esterase Urine UA NEGATIVE (NEGATIVE); Nitrite Urine UA NEGATIVE (Negative); Occult Blood Urine UA NEGATIVE (Negative); Protein Urine UA NEGATIVE (Negative); Specific Gravity Urine UA 1.010 (1.000-1.035); Urobilinogen Urine UA 0.2 E.U./dL (0.2); pH Urine UA 6.0 (4.5-8.0)
[2025-09-13 08:24] LABS: Culture Indicated Urine Cult Not Indicated
[2025-09-13 08:36] LABS: Add Manual Diff / Slide Review NO; Hematocrit 38.9 % (41-53); Hemoglobin 13.1 g/dL (13.5-17.5); Lymphocytes Absolute Auto 1000 /uL (1100-4500); Mean Corpuscular HGB Conc 33.7 % (30-36); Mean Corpuscular Hemoglobin 31.0 PG (26-34); Mean Corpuscular Volume 92.1 fL (80-100); Platelet Count 205 X10^3/uL (150-400)
[2025-09-13 08:48] LABS: Hemoglobin A1C% w Est Avg Glu 5.7 % (4.0-6.0)
[2025-09-13 09:13] LABS: Blood Urea Nitrogen 20 mg/dL (9-20); Calcium 9.8 mg/dL (8.4-10.2); Carbon Dioxide 27 mmol/L (22-32); Chloride 103 mmol/L (98-107); Estimated Glomerular Filt Rate 42 mL/min (>60); Glucose 104 mg/dL (70-99); HEMOLYSIS < 15 (0-50); Potassium 4.8 mmol/L (3.4-5.1); Sodium 138 mmol/L (137-145)
[2025-09-14 09:13] LABS: Calcium 9.6 mg/dL (8.6-10.2); Parathyroid Hormone, Intact 73 pg/mL (15-65)
== END ==
PROVIDERS: PCP Internal Medicine; Referring Provider Internal Medicine; Visit Provider Orthopaedic Surgery
DX: Z01.818 Encounter for other preprocedural examination (principal); E11.22 Type 2 diabetes mellitus with diabetic chronic kidney disease; N18.32 Chronic kidney disease, stage 3b; R73.09 Other abnormal glucose; M16.2 Bilateral osteoarthritis resulting from hip dysplasia
CPT/HCPCS: 36415; 80048; 81001; 82310; 83036; 83970; 85025

== ENCOUNTER → 2025-09-20 16:30 | Outpatient (CLI) | payer MEDICARE, OTHER, SELFPAY ==
--- NOTE | 2025-09-20 16:49 | EKG_ITS ---
[place] [id number] [place] [id number] Test Date: 2025-09-20 Pat Name: Dmitri Tovar Department: [facility] Room: Gender: Male [employer] Floor Walker: PAULA : 1945 Requested By: Order Number: [id number] Reading MD: iNc Miles MD Measurements Intervals [place] Rate: 69 P: 0 NC: 164 QRS: 48 QRSD: 148 T: 44 QT: 430 QTc: 460 Interpretive Statements Normal sinus rhythm Right bundle branch block Electronically Signed On 09-20-2025 17:20:01 PST by Nic Miles MD
== END ==
LOC: RESP 16:32
PROVIDERS: PCP Internal Medicine; Referring Provider Internal Medicine; Visit Provider Internal Medicine
DX: Z01.818 Encounter for other preprocedural examination (principal)
CPT/HCPCS: 93005

== ENCOUNTER → 2025-10-02 09:09 | Outpatient (CLI) | payer MEDICARE, OTHER, SELFPAY ==
--- NOTE | 2025-10-02 09:11 | DI.NM.S_ITS ---
PROCEDURE: NM BASIA PERF SPECT R&S PHARM Rest and pharmacological stress myocardial perfusion SPECT with gated imaging and ejection fraction RADIOPHARMACEUTICAL: 27.5 mCi Tc-99m tetrafosmin IV at rest and 25.5 mCi Tc-99m tetrafosmin IV at peak effect of pharmacological stress. Uoj-ine-ayccfvry was performed. INDICATIONS: Preop/cardiac TECHNIQUE: Radiopharmaceutical was injected at peak stress test, and also at rest. SPECT images were obtained. SPECT myocardial perfusion images were displayed in short axis, horizontal long axis, and vertical long axis views. Gated images were reviewed using BBspace software. COMPARISON: None. CARDIAC STRESS: A pharmacologic stress test was performed under the supervision of an attending staff, using an infusion of regadenoson 0.4 mg IV. Hemodynamic data: There is normal blood pressure and heart rate response to pharmacologic stress. Symptoms: The patient denied anginal chest pain. EKG: No diagnostic changes of ischemia; no ectopy. FINDINGS: Raw data: There is good myocardial uptake of radiotracer. No significant motion artifacts. Lcnu-fu-nwgju ratio is 0.23 (normal is less than 0.38 for tetrafosmin tracer). Left ventricle function: Gated images demonstrate normal left ventricular wall thickening. No segmental wall motion abnormalities. No transient ischemic dilation; TID is 0.95 (normal less than 1.3). Left ventricle resting end diastolic volume is 90 mL. Left ventricle stress ejection fraction is 67%; normal range is above 45%. Myocardial perfusion: There is normal distribution of activity in the right and left ventricular myocardium. No fixed or reversible perfusion defects. IMPRESSION: Low risk study. No evidence of pharmacologic induced ischemia or scar. Normal LV size and function. Dictated by: Hailee Wheeler D.O. on 10/08/2025 at 17:03 Approved by: Haliee Wheeler D.O. on 10/08/2025 at 17:04
== END ==
LOC: NUCM 09:11
PROVIDERS: PCP Internal Medicine; Referring Provider Internal Medicine; Visit Provider Internal Medicine
DX: I25.810 Atherosclerosis of coronary artery bypass graft(s) without angina pectoris (principal); E11.22 Type 2 diabetes mellitus with diabetic chronic kidney disease; N18.32 Chronic kidney disease, stage 3b
CPT/HCPCS: 78452; 93017; A9502; J2785